=== PATIENT | male | born 1990 | race Caucasian/White ===

== ENCOUNTER 2017-03-27 11:51 | Emergency (ER) | payer SELFPAY ==
[2017-03-27] MEDS ORDERED: Sodium Chloride 0.9% 1,000 ML ONE (12:18)
[2017-03-27] MEDS ORDERED: methylPREDNISolone Sod Succ/PF 125 MG/2 ML VIAL ONE (12:19)
[2017-03-27] MEDS ORDERED: Ketorolac Tromethamine 30 MG/ML VIAL ONE (12:20)
[2017-03-27] MEDS ORDERED: cefTRIAXone\\ROCEPHIN 1 GM VIAL ONE (12:20)
[2017-03-27] MEDS ORDERED: Sodium Chloride 0.9% 100 ML ONE ×2 (12:25)
== END 2017-03-27 13:20 | disposition home or self-care (01) ==
LOC: NAV ERS 11:51
DX: J02.9 Acute pharyngitis, unspecified (principal)
CPT/HCPCS: J0696; J1885; J2930; J7050

== ENCOUNTER 2017-07-31 23:05 | Emergency (ER) | payer BC, SELFPAY | END 2017-07-31 23:30 | disposition home or self-care (01) | LOC: NAV ERS 23:05 | DX: K52.9 Noninfective gastroenteritis and colitis, unspecified (principal) | CPT/HCPCS: 99283 ==

== ENCOUNTER 2017-09-18 16:21 | Emergency (ER) | payer BC ==
[2017-09-18] MEDS ORDERED: Lidocaine 1% 20 ML MDV ONE (16:38)
[2017-09-18] MEDS ORDERED: Adacel (T-DAP) 0.5 ML VIAL ONE (16:45)
[2017-09-18] MEDS ORDERED: Bacitracin Zinc 1 Packet ONE (17:01)
[2017-09-18] MEDS ORDERED: Amoxicillin/Potassium Clav 875 MG TAB ONE (17:15)
== END 2017-09-18 17:20 | disposition home or self-care (01) ==
LOC: NAV ERS 16:21
DX: S61.217A Laceration without foreign body of left little finger without damage to nail, initial encounter (principal); Z23 Encounter for immunization; I10 Essential (primary) hypertension; W54.0XXA Bitten by dog, initial encounter
CPT/HCPCS: 12001; 90471; 90715; J2001

== ENCOUNTER 2017-09-30 03:18 | Emergency (ER) | payer BC ==
[2017-09-30] MEDS ORDERED: AMOXicillin 250 MG CAP ONE (03:41)
== END 2017-09-30 04:00 | disposition home or self-care (01) ==
LOC: NAV ERS 03:18
DX: K02.9 Dental caries, unspecified (principal)
CPT/HCPCS: 99282

== ENCOUNTER 2017-09-30 21:27 | Emergency (ER) | payer BC ==
[2017-09-30] MEDS ORDERED: Ketorolac Tromethamine 60 MG/2 ML VIAL ONE (22:15)
== END 2017-09-30 22:30 | disposition home or self-care (01) ==
LOC: NAV ERS 21:27
DX: K02.9 Dental caries, unspecified (principal)
CPT/HCPCS: 96372; 99282; J1885

== ENCOUNTER 2018-04-29 22:24 | Emergency (ER) | payer BC | END 2018-04-29 23:20 | disposition home or self-care (01) | LOC: NAV ERS 22:24 | DX: L73.9 Follicular disorder, unspecified (principal); F17.210 Nicotine dependence, cigarettes, uncomplicated | CPT/HCPCS: 99282 ==

== ENCOUNTER 2019-01-10 19:07 | Emergency (ER) | payer BC ==
[2019-01-10 19:31] LABS: #Basophils 0.1 thou/uL (0.0-0.2); #Eosinphils 0.4 thou/uL (0.0-0.7); #Lymphocytes 2.1 thou/uL (1.20-3.40); #Monocytes 0.6 thou/uL (0.11-0.59); %Basophils 0.7 % (0.0-1.0); %Eosinophils 3.4 % (0.0-10.0); %Lymphocytes 18.5 % (21.0-51.0); %Monocytes 5.6 % (0.0-10.0); %Neutrophils 71.9 % (42.0-75.0); Hemoglobin 18.1 g/dL (14.0-18.0); Mean Corpuscular HGB CONC 33.4 g/dL (32.0-36.0); Mean Corpuscular Hemoglobin 30.2 pg (27.0-31.0); Mean Corpuscular Volume 90.4 fL (78.0-98.0); Mean Platelet Volume 7.4 fL (7.4-10.4); Platelet Count 286 thou/uL (130-400); RBC Distribution Width 11.7 % (11.5-14.5); Red Blood Cell (RBC) Count 6.02 mill/uL (4.70-6.10); White Blood Cell (WBC) Count 11.1 thou/uL (4.8-10.8)
[2019-01-10 19:45] LABS: ALT (SGPT) 30 U/L (8-55); AST (SGOT) 27 U/L (5-34); Albumin 4.7 g/dL (3.5-5.0); Alkaline Phosphatase 65 U/L (40-150); Anion Gap 14 mmol/L (10-20); BUN (Urea Nitrogen) 20 mg/dL (8.9-20.6); Bilirubin, Total 0.6 mg/dL (0.2-1.2); CRP (Inflammatory) Less than 0.50 mg/dL (= or < 0.5); Calc. Creatinine Clearance 0 mL/min (70-130); Calcium 9.9 mg/dL (7.8-10.44); Carbon Dioxide 25 mmol/L (22-29); Chloride 100 mmol/L (98-107); Estimated GFR-MDRD 75; Globulin 3.1 g/dL (2.4-3.5); Glucose 86 mg/dL (70-105); Protein, Total 7.8 g/dL (6.0-8.3); Sodium 135 mmol/L (136-145)
[2019-01-10] MEDS ORDERED: Ondansetron PF 4 MG/2 ML Vial ONE (19:53)
[2019-01-10] MEDS ORDERED: Sodium Chloride 0.9% 1,000 ML ONE (19:53)
[2019-01-10 20:19] LABS: Bilirubin Negative (Negative); Blood, Urine Negative (Negative); Clarity Clear (Clear); Glucose, Urine (Dipstick) Negative (Negative); Leukocyte Negative (Negative); Nitrite Negative (Negative); Protein, Urine (Dipstick) Negative (Neg-Trace); Specific Gravity, Urine 1.015 (1.005-1.030); Urobilinogen 0.2 mg/dL (0.2-1.0); pH, Urine 6.5 (5.0-9.0)
--- NOTE | 2019-01-10 20:41 | CT ---
CT ABDOMEN AND PELVIS PERFORMED WITH CONTRAST ENHANCEMENT: 01/10/19 HISTORY: Right lower abdominal pain. COMPARISON: A 11/19/14 study. The lung bases show subsegmental atelectatic changes. The liver, spleen, pancreas and gallbladder regions show no focal findings. Right and left adrenal glands and right and left kidneys are normal in size. No obstruction or eviden ce for renal or ureteral calculi. There is no significant periaortic or mesenteric lymphadenopathy. CT OF PELVIS PERFORMED WITH CONTRAST ENHANCEMENT: The bladder is mildly distended. The appendix region appears unremarkable. Prostate is mildly promine nt for age. No significant bony findings. IMPRESSION: No acute abnormalities of the abdomen or pelvis. POS: [facility]
== END 2019-01-10 20:45 | disposition home or self-care (01) ==
LOC: NAV ERS 19:07
DX: R10.31 Right lower quadrant pain (principal); F17.210 Nicotine dependence, cigarettes, uncomplicated; Z79.899 Other long term (current) drug therapy
CPT/HCPCS: 74177; 80053; 81003; 85025; 86140; 96361; 96374; J2405; J7050

== ENCOUNTER 2021-09-03 21:30 | Emergency (ER) | payer BC ==
[2021-09-03 22:15] LABS: #Basophils 0.1 thou/uL (0.0-0.2); #Eosinphils 0.2 thou/uL (0.0-0.7); #Lymphocytes 1.1 thou/uL (1.20-3.40); #Monocytes 0.8 thou/uL (0.11-0.59); #Neutrophils 11.2 thou/uL (1.40-6.50); %Basophils 0.5 % (0.0-1.0); %Eosinophils 1.8 % (0.0-10.0); %Lymphocytes 8.1 % (21.0-51.0); %Monocytes 5.7 % (0.0-10.0); Hemoglobin 17.6 g/dL (14.0-18.0); Mean Corpuscular HGB CONC 35.1 g/dL (32.0-36.0); Mean Corpuscular Hemoglobin 32.9 pg (27.0-31.0); Mean Corpuscular Volume 93.5 fL (78.0-98.0); Mean Platelet Volume 7.6 fL (7.4-10.4); Platelet Count 239 thou/uL (130-400); RBC Distribution Width 12.2 % (11.5-14.5); Red Blood Cell (RBC) Count 5.36 mill/uL (4.70-6.10); White Blood Cell (WBC) Count 13.3 thou/uL (4.8-10.8)
[2021-09-03 22:22] LABS: Bilirubin Negative (Negative); Blood, Urine Negative (Negative); Clarity Clear (Clear); Glucose, Urine (Dipstick) Negative (Negative); Ketone, Urine Trace mg/dL (Negative); Leukocyte Negative (Negative); Nitrite Negative (Negative); Protein, Urine (Dipstick) Negative (Neg-Trace)
[2021-09-03 22:24] LABS: Specific Gravity, Urine 1.027 (1.002-1.036)
[2021-09-03 22:32] LABS: ALT (SGPT) 42 U/L (8-55); AST (SGOT) 23 U/L (5-34); Albumin 4.4 g/dL (3.5-5.0); Alkaline Phosphatase 69 U/L (40-110); Anion Gap 14 mmol/L (10-20); BUN (Urea Nitrogen) 21 mg/dL (8.9-20.6); Bilirubin, Total 1.5 mg/dL (0.2-1.2); Calc. Creatinine Clearance 0 mL/min (70-130); Carbon Dioxide 25 mmol/L (22-29); Chloride 101 mmol/L (98-107); Globulin 3.2 g/dL (2.4-3.5); Glucose 92 mg/dL (70-105); Potassium 3.9 mmol/L (3.5-5.1); Protein, Total 7.6 g/dL (6.0-8.3); Sodium 136 mmol/L (136-145)
[2021-09-03] MEDS ORDERED: Ketorolac Tromethamine 30 MG/ML VIAL ONE (22:32)
[2021-09-03] MEDS ORDERED: Famotidine/PF 20 mg/2ml Vial ONE (22:33)
[2021-09-03 22:49] LABS: Lipase 12 U/L (8-78)
== END 2021-09-03 23:26 | disposition home or self-care (01) ==
LOC: NAV ERS 21:30
DX: R10.11 Right upper quadrant pain (principal); R10.12 Left upper quadrant pain; R10.816 Epigastric abdominal tenderness; R19.7 Diarrhea, unspecified; F17.210 Nicotine dependence, cigarettes, uncomplicated
CPT/HCPCS: 36415; 80053; 81003; 83690; 85025; 93005; 96372; 96374; 96375; J0500; J1885; S0028

== ENCOUNTER 2022-06-19 18:04 | Emergency (ER) | payer BC ==
[2022-06-19] MEDS ORDERED: Ondansetron ODT 4 MG TAB ONE (18:43)
[2022-06-19] MEDS ORDERED: Acetaminophen 500 MG TAB ONE (18:43)
[2022-06-19] MEDS ORDERED: Sodium Chloride 0.9% 1,000 ML ONE (20:15)
[2022-06-19] MEDS ORDERED: Ketorolac Tromethamine 30 MG/ML VIAL ONE (20:15)
[2022-06-19 20:23] LABS: #Basophils 0.1 thou/uL (0.0-0.2); #Eosinphils 0.1 thou/uL (0.0-0.7); #Lymphocytes 0.3 thou/uL (1.20-3.40); #Monocytes 0.6 thou/uL (0.11-0.59); #Neutrophils 5.5 thou/uL (1.40-6.50); %Eosinophils 1.1 % (0.0-10.0); %Lymphocytes 4.5 % (21.0-51.0); %Monocytes 8.6 % (0.0-10.0); %Neutrophils 84.9 % (42.0-75.0); Hemoglobin 15.8 g/dL (14.0-18.0); Mean Corpuscular HGB CONC 33.1 g/dL (32.0-36.0); Mean Corpuscular Hemoglobin 30.7 pg (27.0-31.0); Mean Corpuscular Volume 92.7 fL (78.0-98.0); Mean Platelet Volume 8.3 fL (7.4-10.4); Platelet Count 178 thou/uL (130-400); RBC Distribution Width 11.5 % (11.5-14.5); Red Blood Cell (RBC) Count 5.15 mill/uL (4.70-6.10); White Blood Cell (WBC) Count 6.5 thou/uL (4.8-10.8)
[2022-06-19 20:34] LABS: ALT (SGPT) 50 U/L (8-55); AST (SGOT) 24 U/L (5-34); Albumin 4.1 g/dL (3.5-5.0); Alkaline Phosphatase 73 U/L (40-110); Anion Gap 14 mmol/L (10-20); BUN (Urea Nitrogen) 12 mg/dL (8.9-20.6); Bilirubin, Total 0.6 mg/dL (0.2-1.2); Calc. Creatinine Clearance 0 mL/min (70-130); Calcium 9.1 mg/dL (7.8-10.44); Carbon Dioxide 24 mmol/L (22-29); Chloride 103 mmol/L (98-107); Estimated GFR 112; Glucose 105 mg/dL (70-105); Protein, Total 7.1 g/dL (6.0-8.3); Sodium 137 mmol/L (136-145)
[2022-06-19 23:03] LABS: Bilirubin Negative (Negative); Blood, Urine Negative (Negative); Clarity Clear (Clear); Glucose, Urine (Dipstick) Negative (Negative); Ketone, Urine Negative (Negative); Leukocyte Negative (Negative); Nitrite Negative (Negative); Protein, Urine (Dipstick) Negative (Neg-Trace); Specific Gravity, Urine 1.015 (1.005-1.030); pH, Urine 6.5 (5.0-9.0)
== END 2022-06-19 23:38 | disposition home or self-care (01) ==
LOC: NAV ERS 18:04
DX: U07.1 COVID-19 (principal); E86.0 Dehydration; F17.210 Nicotine dependence, cigarettes, uncomplicated
CPT/HCPCS: 71045; 80053; 81003; 83605; 85025; 87804; 96361; 96374; J1885; J7050; Q0162; U0003; U0005

== ENCOUNTER 2024-06-23 17:52 | Emergency (ER) | payer BC ==
[2024-06-23] MEDS ORDERED: Sodium Chloride 0.9% 1,000 ML ONE (18:15)
[2024-06-23] MEDS ORDERED: Ondansetron PF 4 MG/2 ML Vial ONE (18:15)
[2024-06-23] MEDS ORDERED: Bacitracin 1 PK ONE (18:15)
[2024-06-23] MEDS ORDERED: Boostrix 0.5 ML (Tdap) VIAL (>/=7 yrs of age) ONE ×2 (18:15→18:24)
[2024-06-23 18:42] LABS: ALT (SGPT) 36 U/L (8-55); AST (SGOT) 27 U/L (5-34); Albumin 4.3 g/dL (3.5-5.0); Alkaline Phosphatase 79 U/L (40-110); Anion Gap 16 mmol/L (10-20); BUN (Urea Nitrogen) 12 mg/dL (8.9-20.6); Bilirubin, Total 1.1 mg/dL (0.2-1.2); Calc. Creatinine Clearance 0 mL/min (70-130); Calcium 9.3 mg/dL (7.8-10.44); Carbon Dioxide 21 mmol/L (22-29); Chloride 104 mmol/L (98-107); Estimated GFR 86; Globulin 3.1 g/dL (2.4-3.5); Glucose 88 mg/dL (70-105); Magnesium 1.8 mg/dL (1.6-2.6); Potassium 4.2 mmol/L (3.5-5.1); Protein, Total 7.4 g/dL (6.0-8.3); Sodium 137 mmol/L (136-145)
[2024-06-23 18:44] LABS: #Basophils 0.1 thou/uL (0.0-0.2); #Eosinphils 0.3 thou/uL (0.0-0.7); #Monocytes 0.6 thou/uL (0.11-0.59); #Neutrophils 6.7 thou/uL (1.40-6.50); %Eosinophils 2.7 % (0.0-10.0); %Lymphocytes 20.5 % (21.0-51.0); %Monocytes 5.8 % (0.0-10.0); Hematocrit 49.8 % (42.0-52.0); Hemoglobin 16.8 g/dL (14.0-18.0); Mean Corpuscular HGB CONC 33.7 g/dL (32.0-36.0); Mean Corpuscular Hemoglobin 29.4 pg (27.0-31.0); Mean Platelet Volume 7.2 fL (7.4-10.4); Platelet Count 247 10x3/uL (130-400); RBC Distribution Width 11.9 % (11.5-14.5); Red Blood Cell (RBC) Count 5.72 mill/uL (4.70-6.10); White Blood Cell (WBC) Count 9.6 10x3/uL (4.8-10.8)
== END 2024-06-23 19:36 | disposition home or self-care (01) ==
LOC: NAV ERS 17:52
DX: R42 Dizziness and giddiness (principal); R11.2 Nausea with vomiting, unspecified; E67.3 Hypervitaminosis D; F17.210 Nicotine dependence, cigarettes, uncomplicated
CPT/HCPCS: 80053; 83735; 85025; 90471; 90715; 96361; 96374; J2405